=== PATIENT | male | born 1965 | race Caucasian/White ===

== ENCOUNTER 2019-03-02 04:13 | Observation (INO) | payer OTHER ==
[~2019-03-02] VITALS: Ht 172.7 cm; Wt 95.0 kg
[~2019-03-02 04:13] MED LIST: ASPI-903 PO; EZET10TA31 PO; LOSA100T3 PO; LOSA50TA2 PO; METF-849 PO; OMEG1CAP17 PO; ROSU40TA35 PO
[2019-03-02] MEDS ORDERED: ALBUTEROL/IPRATROPIUM (NEB) 3 ML AMP HHN PRN (06:30)
[2019-03-02] MEDS ORDERED: NITROGLYCERIN (SL) 0.4 MG TAB SL PRN (06:30)
[2019-03-02] MEDS ORDERED: ACETAMINOPHEN 325 MG TAB PO PRN (06:30)
[2019-03-02] MEDS ORDERED: NACL 0.9% 3 ML SYG IV SCH (06:30)
[2019-03-02] MEDS ORDERED: ONDANSETRON 4 MG INJ IV PRN (06:30)
[2019-03-02 08:00] VITALS: Ht 172.7 cm; Wt 95.0 kg
[2019-03-02 08:50] VITALS: BP 142/87; PULSE 71; RESP 18
[2019-03-02] MEDS ORDERED: METOPROLOL 25 MG TAB PO SCH (09:00)
[2019-03-02] MEDS: ASPIRIN 81 MG TAB PO SCH (10:25)
[2019-03-02] MEDS: ENOXAPARIN 40 MG/0.4 ML SYG SC SCH (10:53)
[2019-03-02] MEDS ORDERED: METOPROLOL 50 MG TAB PO ONE (11:00)
[2019-03-02 11:28] VITALS: BP 150/89; PULSE 62; RESP 18
[2019-03-02] MEDS ORDERED: IOHEXOL 100 ML ONE (13:58)
[2019-03-02] MEDS ORDERED: SOD CHLORIDE 0.9% 100 ML ONE (13:58)
[2019-03-02 15:28] VITALS: BP 114/72; PULSE 56; RESP 18
[2019-03-02] MEDS ORDERED: LORAZEPAM 2 MG INJ IV ONE (17:00)
[2019-03-02 19:55] VITALS: BP 123/77; PULSE 68; RESP 18
[2019-03-02] MEDS ORDERED: ATORVASTATIN 40 MG TAB PO SCH (21:00)
[2019-03-02] MEDS ORDERED: ATORVASTATIN 20 MG TAB PO SCH (21:00)
[2019-03-02] MEDS ORDERED: LOSARTAN 50 MG TAB PO SCH (21:00)
[2019-03-03 00:14] VITALS: BP 124/82; PULSE 64; RESP 18
[2019-03-03 04:21] VITALS: BP 122/83; PULSE 76; RESP 18
[2019-03-03 07:24] VITALS: BP 123/77; PULSE 64; RESP 20
[2019-03-03] MEDS: ASPIRIN 81 MG TAB PO SCH (08:03)
[2019-03-03] MEDS: ENOXAPARIN 40 MG/0.4 ML SYG SC SCH (08:06)
== END 2019-03-03 11:38 | disposition home or self-care (01) ==
LOC: E/R 04:13 → TEL 05:17
PROVIDERS: ADMIT Internal Medicine; ATTEND Internal Medicine
DX: R07.9 Chest pain, unspecified (principal); I25.10 Atherosclerotic heart disease of native coronary artery without angina pectoris; Z95.5 Presence of coronary angioplasty implant and graft; I10 Essential (primary) hypertension; E78.5 Hyperlipidemia, unspecified; R20.0 Anesthesia of skin
CPT/HCPCS: 36415; 70551; 71045; 75574; 80048; 80053; 80061; 82550; 82553; 83036; 83735; 84443; 84484; 85025; 93005; 93306; G0378; J1650; J2060; Q9967